=== PATIENT | male | born 1960 ===

== ENCOUNTER → 2022-02-21 | Emergency (ER) | payer BC ==
[~2022-02-21] MED LIST: HYDROCODONE/APAP 7.5/325 MG TAB ONE
--- OUTSIDE RECORDS SUMMARY | 2022-02-21 03:15 | XMS REPORT | Continuity of Care Document ---
:1960 Author Organization [facility] t Address [address] [place] [address] Care Team Providers Name Role Phone Jaspreet Dsouza Primary Care Physician ELIS TSANG Attending Clinician Unavailable JOSE AMBROSIO Attending Clinician Unavailable Elis Hines Attending Clinician Jose Ambrosio MD Attending Clinician 2, [facility] Attending Clinician Unavailable Doctor Unassigned, [place] Attending Clinician Unavailable JOSE AMBROSIO Admitting Clinician Unavailable Payers Payer Name Policy Type Policy Number Effective Date [facility] Date [id number] 2020 00:00:00 OUT OF STATE Problems Condition Condition Condition Status Onset Resolution Last Treating Co mments Source Name Details Category Date Date Treatment Clinician Date No known No known Disease Unive rs active active ity of problems problems [facility] Allergies, Adverse Reactions, Alerts Allergy Allergy Status Severity Reaction(s) Onset Inactive Treating Comm ents Source Name Type Date Date Clinician NO KNOWN Drug Active Univers ALLERGIE Class ity of S [facility] Social History Social Habit Start Date Stop Date Quantity Comments Source History of tobacco Cigarette Smoker University of use [facility] Exposure to 2022-01-08 2022-01-18 Not sure University SARS-CoV-2 (event) 00:00:00 13:55:00 [facility] Cigarettes smoked 2022-01-18 2022-01-18 Univers ity of current (pack per 00:00:00 00:00:00 [facility] ) - Reported Branch Cigarette 2022-01-18 2022-01-18 University of pack-years 00:00:00 00:00:00 [facility] Tobacco use and 2022-01-18 2022-01-18 Smokeless Universit y of exposure 00:00:00 00:00:00 tobacco non-user [facility] Sex Assigned At [birth year] Universit y of 00:00:00 00:00:00 [facility] Smoking Status Start Date Stop Date Source Unknown if ever smoked Universit y of [facility] Smokes tobacco daily 2022-01-18 00:00:00 Univers ity of [facility] Medications Ordered Filled Start Stop Current Ordering Indication Dosage Frequency Signature Comments Components Source Medication Medication Date Date Medication? Clinician (SIG) Name Name ezetimibe 2020-04 Yes Univers 10 mg 0-21 ity of tablet 00:00: [address] ezetimibe 2020-04 Yes Univers 10 mg 0-21 ity of tablet 00:00: [address] ezetimibe 2020-04 Yes Univers 10 mg 0-21 ity of tablet 00:00: [address] ezetimibe 2020-04 Yes Univers 10 mg 0-21 ity of tablet 00:00: [address] Branch methylPREDN 0 Yes Univer s ISolone 4 8-24 ity of mg tablets 00:00: [address] methylPREDN 0 Yes Univer s ISolone 4 8-24 ity of mg tablets 00:00: [place] 00 [facility] Branch methylPREDN 2020-0 Yes Univer s ISolone 4 8-24 ity of mg tablets 00:00: [address] methylPREDN 0 Yes Univer s ISolone 4 8-24 ity of mg tablets 00:00: [address] Branch lisinopriL- 2020-0 Yes Univer s hydrochloro 8-05 ity of thiazide 00:00: [place] 20-25 mg 00 Medical per tablet Branch naltrexone 0 Yes Univers 50 mg 8-05 ity of tablet 00:00: [address] Branch BYSTOLIC 10 0 Yes Univer s mg tablet 8-05 ity of 00:00: [address] Branch valACYclovi 2021-0 Yes Univer s r 500 mg 8-05 ity of tablet 00:00: [place] 00 [facility] lisinopriL- 0 Yes Univer s hydrochloro 8-05 ity of thiazide 00:00: [place] 20-25 mg 00 Medical per tablet Branch naltrexone 2020-0 Yes Univers 50 mg 8-05 ity of tablet 00:00: [place] [facility] BYSTOLIC 10 0 Yes Univer s mg tablet 8-05 ity of 00:00: [place] [facility] valACYclovi 0 Yes Univer s r 500 mg 8-05 ity of tablet 00:00: [place] [facility] lisinopriL- 0 Yes Univer s hydrochloro 8-05 ity of thiazide 00:00: [place] 20-25 mg 00 Medical per tablet Branch naltrexone 0 Yes Univers 50 mg 8-05 ity of tablet 00:00: [place] [facility] Branch BYSTOLIC 10 0 Yes Univer s mg tablet 8-05 ity of 00:00: [place] [facility] valACYclovi 0 Yes Univer s r 500 mg 8-05 ity of tablet 00:00: [place] [facility] lisinopriL- 0 Yes Univer s hydrochloro 8-05 ity of thiazide 00:00: [place] 20-25 mg 00 Medical per tablet Branch naltrexone 2020-0 Yes Univers 50 mg 8-05 ity of tablet 00:00: [place] [facility] BYSTOLIC 10 0 Yes Univer s mg tablet 8-05 ity of 00:00: [place] [facility] Branch valACYclovi 0 Yes Univer s r 500 mg 8-05 ity of tablet 00:00: [address] Branch Immunizations Ordered Filled Immunization Date Status Comments [facility] e Immunization Name Name SARS-COV-2 COVID-19 2020-07-03 Completed Unive rsity of PFIZER VACCINE 00:00:00 [facility] SARS-COV-2 COVID-19 2020-07-03 Completed Unive rsity of PFIZER VACCINE 00:00:00 [facility] SARS-COV-2 COVID-19 2020-07-03 Completed Unive rsity of PFIZER VACCINE 00:00:00 [facility] SARS-COV-2 COVID-19 2020-07-03 Completed Unive rsity of PFIZER VACCINE 00:00:00 [facility] SARS-COV-2 COVID-19 2020-06-12 Completed Unive rsity of PFIZER VACCINE 00:00:00 [facility] SARS-COV-2 COVID-19 2020-06-12 Completed Unive rsity of PFIZER VACCINE 00:00:00 [facility] SARS-COV-2 COVID-19 2020-06-12 Completed Unive rsity of PFIZER VACCINE 00:00:00 [facility] SARS-COV-2 COVID-19 2020-06-12 Completed Unive rsity of PFIZER VACCINE 00:00:00 [facility] Vital Signs Vital Name Observation Time Observation Value Comments Source Systolic blood 2022-01-18 19:17:00 144 mm[Hg] Univer sity of pressure [facility] Diastolic blood 2022-01-18 19:17:00 93 mm[Hg] Unive rsity of pressure [facility] Heart rate 2022-01-18 19:15:00 93 /min [facility] Body temperature 2022-01-18 19:15:00 36.67 Ricarda Univ ersity of [facility] Respiratory rate 2022-01-18 19:15:00 18 /min [facility] height 2022-01-18 19:15:00 170.2 cm [facility] Body weight 2022-01-18 19:15:00 90.266 kg [facility] BMI 2022-01-18 19:15:00 31.17 kg/m2 [facility] Oxygen saturation in 2022-01-18 19:15:00 95 /min [facility] Arterial blood by [facility] Pulse oximetry Branch Systolic blood 2021-06-09 18:00:00 105 mm[Hg] Univer sity of pressure [facility] Diastolic blood 2021-06-09 18:00:00 65 mm[Hg] Unive rsity of pressure [facility] Heart rate 2021-06-09 18:00:00 65 /[facility] 2021-06-09 18:00:00 36.17 Ricarda Univ ersity of [facility] Respiratory rate 2021-06-09 18:00:00 16 /min [facility] Body weight 2021-06-09 18:00:00 87.544 kg Universi ty of [facility] Oxygen saturation in 2021-06-09 18:00:00 98 /min University Arterial blood by [facility] Pulse oximetry [place] Procedures Procedure Date / Time Performed Performing Clinician Sourc e POCT URINALYSIS AUTO 2022-01-18 19:34:00 Tirso Elis Thao [facility] Encounters Start End Encounter Admission Attending Care Care Encounter Source Date/Time Date/Time Type Type Clinicians Facility Department ID 2022-01-18 2022-01-18 Outpatient R [facility] [id number] Univers 13:45:00 14:50:05 ELIS truong o f [facility] 2022-01-18 2022-01-18 [facility] [id number] Univers 13:45:00 14:50:05 Visit Elis ENGLISH [id number] ity [facility] [id number] [phone] Al dic[address] 2021-06-09 2021-06-09 [facility] [id number] Univers 11:30:00 12:12:09 [facility] 2021-06-09 2021-06-09 [facility] [id number] Univers 11:30:00 12:12:09 Visit Jose [place] [id number] i ty of [id number] [phone] Al dic[address] 2021-06-09 2021-06-09 [facility] [id number] Univers 11:30:00 11:30:00 [facility] 2021-05-20 2021-05-20 [facility] [id number] Univers 00:00:00 00:00:00 [facility] [id number] i ty [id number] [phone] Al dical NAL 085 [facility] 2021-05-06 2021-05-06 Outpatient R [facility] [id number] Univers 14:46:02 23:59:00 JOSE ity [facility] 2021-05-06 2021-05-06 Hospital [facility] [id number] Univers 14:46:02 23:59:00 Encounter [facility] [id number] ity of [facility] [id number] C[place] AT [phone] Al nildashelbie GRIFFIN 804 [facility] 2021-02-07 2021-02-07 Outpatient R [facility] [id number] Univers 15:30:00 15:30:00 JOSE ity [facility] 2021-02-07 2021-02-07 Manager Credit 2, Adc Lab [facility] [id number] Univers 15:02:06 15:17:06 Visit Jose Ambrosio Abran [id number] [id number] [phone] [facility] 2021-02-07 2021-02-07 [facility] [id number] Univers 14:25:15 15:00:[address] [facility] [id number] [id number] [phone] Al dical nal 204 [facility] 2021-02-07 2021-02-07 Orders Doctor JOHANA [id number] Univers 00:00:00 00:00:00 Only Unassigned, SAMANTHA [id number] [place] [facility] [id number] [place] as [phone] [address] Results Test Description Test Time Test Comments Results Result Comments Source POCT URINALYSIS, INSTRUMENT 2022-01-18 19:35:00 Test Item Value Reference Range Interpretation Comme nts POCT U SP GRAV (test code = 3255) 1.020 mg/dl 1.005-1.025 POCT PH U (test code = 3254) 5.5 mg/dl 5-8 POCT U LEUK EST (test code = 3263) Trace Negative - Negative POCT U NIT (test code = 3262) Negative Negative - Negative POCT U PROT (test code = 3259) Negative Negative - Negative POCT U GLU (test code = 3256) Negative Negative - Negative POCT U KETONE (test code = 3258) Negative Negative - Negative POCT U UROBILI (test code = 3260) 0.2 mg/dl 0.2-1 POCT U BILI (test code = 3261) Negative Negative - Negative POCT U BLD (test code = 3257) Trace-Iysed* Negative - Negative POCT U COLOR (test code = 3266) Yellow POCT U APPEAR (test code = 3267) Clear [facility] URINALYSIS, [id number] 19:35:00 Test Item Value Reference Range Interpretation Comments POCT U SP GRAV (test code = 1.020 mg/dl 1.005-1.025 3255) POCT PH U (test code = 3254) 5.5 mg/dl 5-8 POCT U LEUK EST (test code = Trace Negative - Negative 3263) POCT U NIT (test code = Negative Negative - Negative 3262) POCT U PROT (test code = Negative Negative - Negative 3259) POCT U GLU (test code = Negative Negative - Negative 3256) POCT U KETONE (test code = Negative Negative - Negative 3258) POCT U UROBILI (test code = 0.2 mg/dl 0.2-1 3260) POCT U BILI (test code = Negative Negative - Negative 3261) POCT U BLD (test code = Trace-Iysed* Negative - Negative 3257) POCT U COLOR (test code = Yellow 3266) POCT U APPEAR (test code = Clear 3267) [facility] URINALYSIS, [id number] 19:35:00 Test Item Value Reference Range Interpretation Comments POCT U SP GRAV (test code = 1.020 mg/dl 1.005-1.025 3255) POCT PH U (test code = 3254) 5.5 mg/dl 5-8 POCT U LEUK EST (test code = Trace Negative - Negative 3263) POCT U NIT (test code = Negative Negative - Negative 3262) POCT U PROT (test code = Negative Negative - Negative 325) POCT U GLU (test code = Negative Negative - Negative 3256) POCT U KETONE (test code = Negative Negative - Negative 3258) POCT U UROBILI (test code = 0.2 mg/dl 0.2-1 3259) POCT U BILI (test code = Negative Negative - Negative 326) POCT U BLD (test code = Trace-Iysed* Negative - Negative 325) POCT U COLOR (test code = Yellow 3266) POCT U APPEAR (test code = Clear 326) [facility]
== END ==
LOC: ER 03:11
DX: Z02.9 Encounter for administrative examinations, unspecified (principal)